=== PATIENT | male | born 2000 | race Caucasian/White ===

== ENCOUNTER → 2018-04-10 | Outpatient (CLI) | payer OTHER | LOC: FIMAGING 11:11 | PROVIDERS: ATTEND Family Medicine | DX: K40.90 Unilateral inguinal hernia, without obstruction or gangrene, not specified as recurrent (principal) ==

== ENCOUNTER 2018-05-05 11:07 | Day surgery (SDC) | payer OTHER ==
--- NOTE | 2018-05-05 07:02 | PDHPUP ---
History & Physical Update H&P update statement: This history and physical update is based on an assessment of the patient which was completed after admission or registration (within 24 hours), but prior to the surgery/procedure. H&P update: H&P reviewed & patient examined, no change in patient's condition since H&P completed
[~2018-05-05 11:07] MED LIST: BUPIVACAINE/EPI 0.25% 30 ML SDV ONE; VANCOMYCIN HCL/NORMAL SALINE 250 ML IV ONE; VANCOMYCIN PHARMACY TO DOSE MISC ONE
[2018-05-05] MEDS ORDERED: MIDAZOLAM 2 MG/2 ML VIAL IVP ONE (12:02)
[2018-05-05] MEDS ORDERED: LIDOCAINE 1% 2 ML INJ ID PRN (12:04)
[2018-05-05] MEDS ORDERED: LR 1,000 ML IV ONE (12:04)
[2018-05-05] MEDS ORDERED: PROPOFOL 200 MG/20 ML VIAL ONE (12:11)
[2018-05-05] MEDS ORDERED: fentaNYL 100 MCG/2 ML INJ ONE ×3 (12:11→14:56)
--- NOTE | 2018-05-05 12:29 | PDANEPAE ---
ANE History of Present Illness inguinal hernia ANE Past Medical History - Cardiovascular History Hx Hypertension: No Hx Arrhythmias: No Hx Chest Pain: No Hx Coronary Artery / Peripheral Vascular Disease: No Hx CHF / Valvular Disease: No Hx Palpitations: No - Pulmonary History Hx COPD: No Hx Asthma/Reactive Airway Disease: No Hx Recent Upper Respiratory Infection: No Hx Oxygen in Use at Home: No Hx Sleep Apnea: No - Neurologic History Hx Cerebrovascular Accident: No Hx Seizures: No Hx Dementia: No Neurologic History Comment: HEADACHES OCCAS - Endocrine History Hx Diabetes: No - Renal History Hx Renal Disorders: No - Liver History Hx Hepatic Disorders: No - Neurological & Psychiatric Hx Hx Neurological and Psychiatric Disorders: No - Cancer History Hx Cancer: No - Congenital Disorder History Hx Congenital Disorders: No - GI History Hx Gastrointestinal Disorders: No - Other Health History Other Health History: NEG - Chronic Pain History Chronic Pain: No - Surgical History Prior Surgeries: TONSILLECTOMY. ADENOIDECTOMY. EAR SURGERY. NASAL SURGERY ANE Review of Systems Review of Systems: - Exercise capacity METS (RN): 5 METS ANE Patient History - Allergies Allergies/Adverse Reactions: Cephalosporins Allergy (Verified 05/04/18 09:09) Penicillins Allergy (Verified 05/04/18 09:09) Sulfa (Sulfonamide Antibiotics) Allergy (Verified 05/04/18 09:09) - Home Medications Home medications: home medication list seen and reviewed - Anes Hx Anes Hx: no prior problems - Smoking Hx Smoking Status: Never smoked - Family Anes Hx Family Hx Anesthesia Complications: NEG ANE Labs/Vital Signs - Vital Signs Height: 165.1 cm Weight: 61.235 kg ANE Physical Exam - Airway Neck exam: FROM Mallampati Score: Class 1 Mouth exam: normal dental/mouth exam - Pulmonary Pulmonary: no respiratory distress - Cardiovascular Cardiovascular: regular rate and rhythym - ASA Status ASA Status: I ANE Anesthesia Plan Anesthesia Plan: general endotracheal anesthesia
[2018-05-05] MEDS ORDERED: DEXAMETHASONE 4 MG/ML VIAL ONE (12:54)
[2018-05-05] MEDS ORDERED: SUGAMMADEX SODIUM 200 MG/2 ML VIAL IVP ONE (12:54)
[2018-05-05] MEDS ORDERED: ONDANSETRON 4 MG/2 ML VIAL ONE (12:54)
[2018-05-05] MEDS ORDERED: KETOROLAC 30 MG/1 ML SDV ONE (12:54)
[2018-05-05] MEDS ORDERED: ROCURONIUM 50 MG/5 ML VIAL ONE (12:54)
[2018-05-05] MEDS ORDERED: HYDROCODONE/APAP 5/325 TAB PO PRN (13:33)
[2018-05-05] MEDS ORDERED: HYDROmorphONE/DILAUDID 2 MG/ML INJ IVP PRN (13:33)
[2018-05-05] MEDS ORDERED: LR 500 ML IV PRN (13:33)
[2018-05-05] MEDS ORDERED: oxyCODONE IR 5 MG TAB PO PRN (13:33)
[2018-05-05] MEDS ORDERED: ACETAMINOPHEN 500 MG TAB PO PRN (13:33)
[2018-05-05] MEDS ORDERED: fentaNYL 100 MCG/2 ML INJ IVP PRN (13:33)
[2018-05-05] MEDS ORDERED: ALBUTEROL 3 ML DEYVIAL IH PRN (13:33)
[2018-05-05] MEDS ORDERED: PROMETHAZINE HCL 25 MG/ML INJ IVP PRN (13:33)
[2018-05-05] MEDS ORDERED: NALOXONE HCL 0.4 MG/ML INJ IVP PRN (13:33)
[2018-05-05] MEDS ORDERED: ONDANSETRON 4 MG/2 ML VIAL IVP PRN (13:33)
--- NOTE | 2018-05-05 13:33 | POSTANESTH ---
Post Anesthetic Evaluation Cardiovascular Status: Normal, Stable Respiratory Status: Normal, Stable Level of Consciousness/Mental Status: Can Participate in Eval, Mildly Sleepy, Arousable Pain Control: Adequate, Prn Tx Ordered Nausea/Vomiting Control: Adequate, Prn Tx Ordered Complications Possibly Related to Anesthesia: None Noted
--- NOTE | 2018-05-05 14:08 | POSTOPPROG ---
Post Op Note Date of Operation: 05/05/18 Surgeon: Ovidio Valdivia Integration Software Developer: Yunior Anesthesiologist: Carolina Anesthesia: GET(General Endotracheal) Pre-op Diagnosis: RIH Post-op Diagnosis: BIH Procedure: Robo assisted bilateral inguinal hernia repair with mesh Findings: mod tyrese direct defects Inf/Abcess present in the surg proc area at time of surgery?: No EBL: Minimal
--- NOTE | 2018-05-05 15:46 | GOP ---
DATE OF OPERATION: 05/05/2018 SURGEON: Ovidio Valdivia MD [employer] [employer] PREPARER: Columba Mojica CFA. ANESTHESIA: General endotracheal. ANESTHESIOLOGIST: Dr. Figueroa. PREOPERATIVE DIAGNOSIS: Right inguinal hernia. POSTOPERATIVE DIAGNOSIS: Bilateral inguinal hernias. PROCEDURE PERFORMED: Robotic assisted laparoscopic bilateral inguinal hernia repair with mesh. FINDINGS: Moderate bilateral direct defects bilaterally with moderate-sized cord lipomas. SPECIMENS: None. ESTIMATED BLOOD LOSS: 5 cc. DESCRIPTION OF PROCEDURE: The patient was greeted in the preoperative suite. Once again, risks, gabriela efits, and alternatives were discussed. Consent was signed. He was then brought back to the operati ve suite, placed on the OR table in supine position. After all anesthesia machines including SCDs we re on and functioning, a [employer] time-out was performed. After successful inductio n of general anesthesia, the patient's abdomen was prepped and draped in typical sterile fashion. I commenced the procedure by creating a supraumbilical cutdown through which the Veress needle was pass ed. I achieved a pneumoperitoneum to 15 mmHg CO2, which was well tolerated by the patient. Once suc cessfully in the abdomen, I then inserted an 8 mm trocar through this site. Once successfully in the abdomen, I then placed 2 additional 8 mm trocars, 1 in the right and 1 in the left upper quadrant. The patient was then placed in gentle Trendelenburg position. I started the procedure by interrogati ng the abdominal viscera and found defects bilaterally. I turned my attention first toward the right side. I created my peritoneal defect just medial to the ASIS and carried this all the way down to t he pubic tubercle. I skeletonized the cord structures and reduced the direct defect. I also removed a fairly moderate-sized cord lipoma from the cord structures. After skeletonization, I found no oth er significant pathology. A Bard 3D Light large size right-sided mesh was then brought into the oper ative field, tacked to the pubic tubercle with an interrupted 2-0 Vicryl stitch as well as on either side of the inferior epigastric vessels. Peritoneal defect was then closed with a running 2-0 V-Loc in the same fashion. Turned my attention toward the left side. Again, the peritoneal defect was made in the same fashion. The cord structures were skeletonized. He had a moderate-sized direct defect on this side too, as well as a moderate-sized cord lipoma. These were both fixed. Once skeletonized , I brought in a left-sided mesh, tacked it to the pubic tubercle as well as on either side of the in ferior epigastric vessels and the peritoneal defect was then closed in the running fashion similar to the other side. Pneumoperitoneum was then evacuated. The robot was undocked and I closed all port sites with running 4-0 Monocryl over which Dermabond was placed. The patient was then extubated in the operative suite and taken to the PACU in satisfactory condition. DRAINS: None. COUNTS: All counts were reported as correct x2. /[id number]/MODL
[2018-05-05 16:03] VITALS: BP 108/64
[2018-05-05] MEDS ORDERED: oxyCODONE IR 5 MG TAB ONE (16:29)
== END 2018-05-05 16:52 | disposition home or self-care (01) ==
LOC: FSGY 11:07
PROVIDERS: ATTEND Surgery
PROC: 0YUA4JZ Supplement Bilateral Inguinal Region with Synthetic Substitute, Percutaneous Endoscopic Approach (ICD-10-PCS; principal; 2018-05-05 12:40)
PROC: 8E0W4CZ Robotic Assisted Procedure of Trunk Region, Percutaneous Endoscopic Approach (ICD-10-PCS; principal; 2018-05-05 12:40)
DX: K40.20 Bilateral inguinal hernia, without obstruction or gangrene, not specified as recurrent (principal); F90.1 Attention-deficit hyperactivity disorder, predominantly hyperactive type; F41.8 Other specified anxiety disorders
CPT/HCPCS: C1781; J1100; J1885; J2250; J2405; J2704; J3010; J3370